=== PATIENT | male | born 1985 | race African-American/Black ===

== ENCOUNTER 2022-12-06 20:05 | Emergency (ER) | payer MEDICAID ==
[~2022-12-06] VITALS: Ht 177.8 cm; Wt 65.8 kg
[2022-12-06 20:21] VITALS: BP_SYST 130; PULSE 94; RESP 20; TEMP 97.4; O2SAT 100
[2022-12-07 06:38] VITALS: BP_SYST 132; PULSE 90; RESP 20; TEMP 98.4; O2SAT 99
== END 2022-12-07 07:14 | disposition home or self-care (01) ==
LOC: SED 20:05
DX: Z93.0 Tracheostomy status (principal); R22.1 Localized swelling, mass and lump, neck; I10 Essential (primary) hypertension; Z79.899 Other long term (current) drug therapy
CPT/HCPCS: 70360-TC; 71045; 99284